=== PATIENT | female | born 1965 | race American Indian/Alaskan Native ===

== ENCOUNTER 2021-03-24 17:54 | Emergency (ER) | payer SELFPAY ==
[2021-03-24 18:28] VITALS: BP 126/96
--- NOTE | 2021-03-24 19:58 | Emergency Department Report ---
ED General Adult HPI - General Chief complaint: Chest Pain Stated complaint: KIDNEY AND HEART PALPITATION Time Seen by Provider: 03/24/21 19:12 Source: patient Mode of arrival: Ambulatory Limitations: No Limitations - History of Present Illness Initial comments: Patient presents to emergency department the chief complaint of heart palpitations have been present for a month. Patient states that their electronic harassment that she continues to Miller her lower abdomen on the left side for the last month. Patient denies a history of schizophrenia or bipolar. Patient also denies suicidal homicidal ideations. -: Gradual Severity scale (0 -10): 0 Consistency: constant Improves with: none Worsens with: none Associated Symptoms: denies other symptoms Treatments Prior to Arrival: none - Related Data Allergies Allergy/AdvReac Type Severity Reaction Status Date / Time No Known Allergies Allergy Unverified 11/21/19 12:23 ED Review of Systems ROS: Stated complaint: KIDNEY AND HEART PALPITATION Other details as noted in HPI Comment: All other systems reviewed and negative Constitutional: denies: chills, fever Eyes: denies: eye pain, eye discharge, vision change ENT: denies: ear pain, throat pain Respiratory: denies: cough, shortness of breath, wheezing Cardiovascular: palpitations. denies: chest pain Endocrine: no symptoms reported Gastrointestinal: denies: abdominal pain, nausea, diarrhea Genitourinary: denies: urgency, dysuria, discharge Musculoskeletal: denies: back pain, joint swelling, arthralgia Skin: denies: rash, lesions Neurological: denies: headache, weakness, paresthesias Psychiatric: denies: anxiety, depression Hematological/Lymphatic: denies: easy bleeding, easy bruising ED Past Medical Hx - Past Medical History Additional medical history: ANEMIA - Surgical History Additional Surgical History: HIP/ ARM - Social History Smoking Status: Never Smoker Substance Use Type: None ED Physical Exam - General Limitations: No Limitations General appearance: alert, in no apparent distress - Head Head exam: Present: atraumatic, normocephalic - Eye Eye exam: Present: normal appearance, PERRL, EOMI - ENT ENT exam: Present: mucous membranes moist - Neck Neck exam: Present: normal inspection - Respiratory Respiratory exam: Present: normal lung sounds bilaterally. Absent: respiratory distress - Cardiovascular Cardiovascular Exam: Present: regular rate, normal rhythm. Absent: systolic murmur, diastolic murmur, rubs, gallop - GI/Abdominal GI/Abdominal exam: Present: soft, normal bowel sounds. Absent: distended, tenderness - Extremities Exam Extremities exam: Present: normal inspection - Back Exam Back exam: Present: normal inspection - Neurological Exam Neurological exam: Present: alert, oriented X3. Absent: CN II-XII intact, motor sensory deficit - Psychiatric Psychiatric exam: Present: normal affect, normal mood - Skin Skin exam: Present: warm, dry, intact, normal color. Absent: rash ED Course Vital Signs 03/24/21 18:26 Temperature 98.4 F Pulse Rate 95 H Respiratory 15 Rate Blood Pressure 126/96 O2 Sat by Pulse 99 Oximetry ED Medical Decision Making - Medical Decision Making Multiple attempts were made to provide medical services to the patient including EKG and blood work but the patient denied. the patient left AGAINST MEDICAL ADVICE Critical care attestation.: If time is entered above; I have spent that time in minutes in the direct care of this critically ill patient, excluding procedure time. ED Disposition Clinical Impression: Palpitations Disposition: 07 LEFT AGAINST MEDICAL ADVICE Is pt being admited?: No Does the pt Need Aspirin: No Condition: Stable Forms: AMA Form
--- NOTE | 2021-03-25 12:13 | Electrocardiograph Report ---
[facility] Test Date: 2021-03-24 Test Time: 18:29:53 Pat Name: VENU TADEO Department: Room: Gender: F Associate Technician: EVELIO : 1965 Requested By: MIKE SEGURA Order Number: [id number] Reading MD: Giovanni Linn Measurements Intervals [place] Rate: 89 P: 79 UT: 131 QRS: 78 QRSD: 73 T: 26 QT: 355 QTc: 432 Interpretive Statements Sinus rhythm Probable left ventricular hypertrophy No previous ECG available for comparison Electronically Signed On 03-25-2021 12:13:19 EST by Giovanni Linn
== END 2021-03-24 20:04 | disposition left against medical advice (07) ==
LOC: ED 17:54
DX: R00.2 Palpitations (principal)
CPT/HCPCS: 93005; 99282

== ENCOUNTER 2021-06-04 22:51 | Emergency (ER) | payer SELFPAY ==
[2021-06-05] MEDS ORDERED: OLANzapine ZYDIS 5 MG TAB PO ONE (00:34)
--- NOTE | 2021-06-05 00:35 | Emergency Department Report ---
ED Psych HPI - General Stated Complaint: WITCHCRAFT/TECHNOLOGY Time Seen by Provider: 06/05/21 00:32 - History of Present Illness Initial Comments: Patient presents for evaluation because she feels she is being controlled by witchcraft or technology. She states that for the last 6 months she has been in a new apartment. She has the belief that her neighbor is shooting some sort of laser or gun through her dupree and controlling her. She reports that she wakes up in the night with puffs of air on her face. She states that these people that are controlling her can "turn it up and turn it down." She admits that when she has been seen at [facility] there has been no evidence of any kind of alteration and she believes that they have turned off their technology in the interim. Patient states that she has 1 daughter that is an telephoto engineer and her daughter believes that that this is witchcraft, not technology. Regardless, the patient is here for evaluation and treatment. She is not suicidal or homicidal. She admits to a diagnosis of schizophrenia and is noncompliant with medication. - Related Data Allergies Allergy/AdvReac Type Severity Reaction Status Date / Time No Known Allergies Allergy Verified 05/10/21 02:31 ED Review of Systems ROS: Stated complaint: WITCHCRAFT/TECHNOLOGY Other details as noted in HPI Comment: All other systems reviewed and negative Constitutional: denies: fever Eyes: denies: vision change ENT: denies: throat pain Respiratory: denies: cough Cardiovascular: denies: chest pain Endocrine: denies: unexplained weight loss Gastrointestinal: denies: vomiting Genitourinary: denies: dysuria Musculoskeletal: denies: back pain Skin: denies: rash Neurological: denies: headache Psychiatric: as per HPI Hematological/Lymphatic: denies: easy bruising ED Past Medical Hx - Past Medical History Hx Psychiatric Treatment: Yes (schizophrenia-noncompliant) Additional medical history: ANEMIA - Surgical History Additional Surgical History: HIP/ ARM - Social History Smoking Status: Never Smoker Substance Use Type: None ED Physical Exam - General Limitations: No Limitations General appearance: alert, in no apparent distress - Head Head exam: Present: atraumatic, normocephalic - Eye Eye exam: Present: normal appearance, EOMI. Absent: scleral icterus - ENT ENT exam: Present: normal orophraynx, normal external ear exam - Neck Neck exam: Present: normal inspection. Absent: meningismus - Respiratory Respiratory exam: Present: normal lung sounds bilaterally. Absent: respiratory distress - Cardiovascular Cardiovascular Exam: Present: regular rate, normal rhythm - GI/Abdominal GI/Abdominal exam: Present: soft. Absent: distended - Extremities Exam Extremities exam: Present: normal capillary refill - Back Exam Back exam: Absent: CVA tenderness (R), CVA tenderness (L) - Neurological Exam Neurological exam: Present: alert, oriented X3, CN II-XII intact, normal gait. Absent: motor sensory deficit - Psychiatric Psychiatric exam: Present: other (paranoid) - Skin Skin exam: Present: warm, dry ED Course Vital Signs 06/05/21 06/05/21 00:34 00:36 Temperature 98.4 F 98.4 F Pulse Rate 102 H Respiratory 20 20 Rate Blood Pressure 117/80 Blood Pressure 117/80 [Right] O2 Sat by Pulse 99 Oximetry - Reevaluation(s) Reevaluation #1: 06/05/21 00:34 Labs ordered. Old records noted. Reevaluation #2: 06/05/21 03:27 Patient continues to refuse any kind of blood work. She states that she believes that she needs x-rays to show what is going on internally. I have discussed this with her and discussed the idea that radiographs would not show anything that is being done to her spiritually or by witchcraft or by any other means. She states that she still will not provide any blood work. She still positive that she is not suicidal or homicidal. She still wants to find out how somebody is controlling her. She does have a history of schizophrenia and noncompliance. At this time, she is not suicidal or homicidal. She does not represent a risk of self-harm. There is no family present to help discuss this with her. Patient was discharged. She is not in a capacity that would necessitate or be amenable to a 1013 hold. She does not meet criteria for grave disability, suicidal ideation, or homicidal ideation. ED Medical Decision Making - Medical Decision Making Patient presents with paranoid delusions. She has a known history of schizophrenia and noncompliance. Patient wanted help, but then refused attempts for blood work. We will going to have our psychiatric services see the patient. At this time, she does not meet criteria for a 1013 hold. She is not suicidal. She is not homicidal. She is not gravely disabled. She states that she does not want us to do anything and has been simply sleeping in the waiting room with her belongings. At this time, patient was discharged. She has been invited to return if she changes her mind about medical evaluation and psychiatric evaluation. Critical Care Time: No Critical care attestation.: If time is entered above; I have spent that time in minutes in the direct care of this critically ill patient, excluding procedure time. ED Disposition Clinical Impression: Paranoid delusion Disposition: 01 HOME / SELF CARE / HOMELESS Is pt being admited?: No Condition: Stable Instructions: Paranoid Personality Disorder, Schizophrenia, Managing Schizophrenia Additional Instructions: RETURN IF YOU CHANGE YOUR MIND ABOUT TESTING AND TREATMENT. Referrals: PRIMARY CAREMD [Primary Care Provider] - 3-5 Days KATIE CATALAN MD [Staff Physician] - 3-5 Days
[2021-06-05 00:36] VITALS: BP 117/80
== END 2021-06-05 03:45 | disposition home or self-care (01) ==
LOC: ED 22:51
DX: F22 Delusional disorders (principal)
CPT/HCPCS: 99282

== ENCOUNTER 2021-06-18 23:52 | Emergency (ER) | payer SELFPAY ==
[2021-06-19 02:13] VITALS: BP 139/100
--- NOTE | 2021-06-19 03:26 | Emergency Department Report ---
ED Psych HPI - General Chief Complaint: Headache Stated Complaint: MH Source: patient Mode of arrival: Ambulatory - History of Present Illness Initial Comments: Patient is a 55-year-old -[place] female with a history of chronic paranoid schizophrenia and noncompliance with medication presents to the ED with persistent auditory and visual hallucinations and believes that she is being followed by the government and her neighbors for over 7 months. Patient also states that she is feeling tingling sensation on her body as well as on her head and would like to be evaluated with a CT scan of her head. Patient states that she is unable to sleep because of the voices and also believes that the neighbors are about to get her and kill her and therefore she is unable to sleep. Patient admits to not taking any medications and stated that she is tired of being labeled paranoid schizophrenia patient yet her symptoms are real to her. Patient denies suicidal or homicidal ideations, chest pain or shortness of breath, dizziness, syncope, change in vision, dysuria, urinary frequency and urgency or vaginal bleeding, fever and chills, traumatic injury or fall. MD Complaint: other (Hearing voices; believes her thoughts are being monitored) -: Gradual, month(s) (7 months) Associated Psychiatric Symptoms: racing thoughts, auditory hallucinations, visual hallucinations, delusions History of same: Yes (Chronic paranoid schizophrenia) Quality: constant Improves With: none Worsens With: none Associated Symptoms: denies other symptoms. denies: confusion, headache, shortness of breath, nausea, vomiting, syncope, insomnia Treatments Prior to Arrival: none, other (Patient does not believe in medications) - Related Data Allergies Allergy/AdvReac Type Severity Reaction Status Date / Time No Known Allergies Allergy Verified 05/10/21 02:31 ED Review of Systems ROS: Stated complaint: MH Other details as noted in HPI Constitutional: denies: chills, fever Eyes: denies: eye pain, eye discharge, vision change ENT: denies: ear pain, throat pain Respiratory: denies: cough, shortness of breath, wheezing Cardiovascular: denies: chest pain, palpitations Endocrine: no symptoms reported Gastrointestinal: denies: abdominal pain, nausea, diarrhea Genitourinary: denies: urgency, dysuria, discharge Musculoskeletal: denies: back pain, joint swelling, arthralgia Skin: denies: rash, lesions Neurological: denies: headache, weakness, paresthesias Psychiatric: auditory hallucinations, visual hallucinations. denies: anxiety, depression, homicidal thoughts, suicidal thoughts Hematological/Lymphatic: denies: easy bleeding, easy bruising ED Past Medical Hx - Past Medical History Previous Medical History?: Yes Hx Psychiatric Treatment: Yes (schizophrenia-noncompliant) Additional medical history: ANEMIA - Surgical History Past Surgical History?: Yes Additional Surgical History: HIP/ ARM - Social History Smoking Status: Never Smoker Substance Use Type: None ED Physical Exam - General Limitations: No Limitations General appearance: alert, in no apparent distress - Head Head exam: Present: atraumatic, normocephalic, normal inspection - Eye Eye exam: Present: normal appearance, PERRL, EOMI Pupils: Present: normal accommodation - ENT ENT exam: Present: normal exam, normal orophraynx, mucous membranes moist, TM's normal bilaterally, normal external ear exam - Neck Neck exam: Present: normal inspection, full ROM - Respiratory Respiratory exam: Present: normal lung sounds bilaterally. Absent: respiratory distress, wheezes, rales, rhonchi, chest wall tenderness, accessory muscle use, decreased breath sounds - Cardiovascular Cardiovascular Exam: Present: regular rate, normal rhythm, normal heart sounds. Absent: systolic murmur, diastolic murmur, rubs, gallop - GI/Abdominal GI/Abdominal exam: Present: soft, normal bowel sounds. Absent: tenderness, guarding, rebound, hyperactive bowel sounds, hypoactive bowel sounds, mass, bruit - Extremities Exam Extremities exam: Present: normal inspection, full ROM, normal capillary refill - Back Exam Back exam: Present: normal inspection, full ROM. Absent: tenderness, CVA tenderness (R), CVA tenderness (L), muscle spasm, paraspinal tenderness, vertebral tenderness - Neurological Exam Neurological exam: Present: alert, oriented X3, CN II-XII intact, normal gait, reflexes normal - Psychiatric Psychiatric exam: Present: normal affect, normal mood, manic, other (Visual hallucinations; delusional thoughts). Absent: homicidal ideation, suicidal ideation - Skin Skin exam: Present: warm, dry, intact, normal color. Absent: rash ED Course Vital Signs 06/19/21 02:08 Temperature 97.7 F Pulse Rate 80 Respiratory 18 Rate Blood Pressure 139/100 O2 Sat by Pulse 100 Oximetry ED Medical Decision Making - Radiology Data Radiology results: report reviewed - Medical Decision Making This is a 55-year-old -[place] female with a history of chronic paranoid schizophrenia and noncompliance with medication presents to the ED with persistent auditory and visual hallucinations and believes that she is being followed by the government and her neighbors for over 7 months. Patient also states that she is feeling tingling sensation on her body as well as on her head and would like to be evaluated with a CT scan of her head. Patient states that she is unable to sleep because of the voices and also believes that the neighbors are about to get her and kill her and therefore she is unable to sleep. Patient admits to not taking any medications and stated that she is tired of being labeled paranoid schizophrenia patient yet her symptoms are real to her. In the ED, patient is alert and oriented x3 and is not in any distress. Patient is not homicidal, or suicidal. Patient was offered lab test to rule out any abnormality in her body including urinalysis but the patient declined any lab work being performed and left the ED AGAINST MEDICAL ADVICE. - Differential Diagnosis Paranoid schizophrenia; chronic depression; noncompliant; drug abuse Critical care attestation.: If time is entered above; I have spent that time in minutes in the direct care of this critically ill patient, excluding procedure time. ED Disposition Clinical Impression: Paranoid schizophrenia, chronic condition, Paranoid delusion Disposition: 01 HOME / SELF CARE / HOMELESS Is pt being admited?: No Does the pt Need Aspirin: No Condition: Stable Instructions: Schizophrenia, Supporting Someone With Schizophrenia Additional Instructions: Follow-up with your primary care physician or psychiatrist in 5 to 7 days for reevaluation. Return to the ED immediately if symptoms get worse. Referrals: [facility] [Provider Group] - 3-5 Days Time of Disposition: 03:28 Print Language: SWEDISH
== END 2021-06-19 03:41 | disposition home or self-care (01) ==
LOC: ED 23:52
DX: F20.0 Paranoid schizophrenia (principal); Z98.890 Other specified postprocedural states
CPT/HCPCS: 99281

== ENCOUNTER 2021-07-10 23:47 | Emergency (ER) | payer SELFPAY ==
[2021-07-10 23:58] VITALS: BP 122/86
== END 2021-07-11 09:06 | disposition left against medical advice (07) ==
LOC: ED 23:47
DX: H92.02 Otalgia, left ear (principal); Z53.21 Procedure and treatment not carried out due to patient leaving prior to being seen by health care provider

== ENCOUNTER 2021-08-10 00:46 | Emergency (ER) | payer SELFPAY ==
[2021-08-10 00:55] VITALS: BP 168/91
== END 2021-08-10 07:00 ==
LOC: ED 00:46
DX: H93.8X9 Other specified disorders of ear, unspecified ear (principal); Z53.21 Procedure and treatment not carried out due to patient leaving prior to being seen by health care provider

== ENCOUNTER 2021-08-18 21:59 | Emergency (ER) | payer SELFPAY ==
[2021-08-18 22:10] VITALS: BP 102/70
== END 2021-08-21 09:43 | disposition left against medical advice (07) ==
LOC: ED 21:59
DX: Z13.30 Encounter for screening examination for mental health and behavioral disorders, unspecified (principal); Z53.21 Procedure and treatment not carried out due to patient leaving prior to being seen by health care provider

== ENCOUNTER 2021-09-16 22:25 | Emergency (ER) | payer SELFPAY | END 2021-09-17 06:00 | disposition left against medical advice (07) | LOC: ED 22:25 | DX: R11.10 Vomiting, unspecified (principal); R51.9 Headache, unspecified; Z53.21 Procedure and treatment not carried out due to patient leaving prior to being seen by health care provider ==

== ENCOUNTER 2021-10-09 00:07 | Emergency (ER) | payer SELFPAY ==
[2021-10-09 01:53] VITALS: BP 140/70
[2021-10-09] MEDS ORDERED: ASPIRIN 325 MG TAB PO ONE (01:55)
--- NOTE | 2021-10-09 06:21 | XRay Report ---
CHEST 2 VIEWS INDICATION / CLINICAL INFORMATION: chestpain. COMPARISON: None available. FINDINGS: SUPPORT DEVICES: None. HEART / MEDIASTINUM: Heart size and mediastinal contour appear within normal limits. LUNGS / PLEURA: Emphysematous changes are suggested. No superimposed acute pathology. No pneumothorax . BONES: No significant osseous abnormality. ADDITIONAL FINDINGS: No significant additional findings. IMPRESSION: 1. . The emphysematous appearance of the chest without evidence of superimposed acute pathology. Signer Name: Maxx Chang II, MD Signed: 10/09/2021 6:17 AM Workstation Name: [id number]
--- NOTE | 2021-10-09 10:46 | Electrocardiograph Report ---
[facility] Test Date: 2021-10-09 Test Time: 02:09:49 Pat Name: VENU TADEO Department: Room: Gender: F Geological E Logger: BRAD : 1965 Requested By: ED DOC Order Number: [id number] Reading MD: Akbar Oglesby Measurements Intervals [place] Rate: 75 P: 81 MT: 154 QRS: 77 QRSD: 70 T: 40 QT: 381 QTc: 425 Interpretive Statements Sinus rhythm Probable left ventricular hypertrophy Compared to ECG 03/24/2021 18:29:53 No significant change Electronically Signed On 10-09-2021 10:46:03 EDT by Akbar Oglesby
== END 2021-10-10 07:23 | disposition left against medical advice (07) ==
LOC: ED 00:07
DX: R07.9 Chest pain, unspecified (principal); Z53.21 Procedure and treatment not carried out due to patient leaving prior to being seen by health care provider
CPT/HCPCS: 71046; 93005